=== PATIENT | male | born 1935 | race Caucasian/White ===

== ENCOUNTER 2018-02-11 16:49 | Outpatient (CLI) | payer MEDICARE, BC ==
[~2018-02-11 16:49] MED LIST: ASPI-611 PO; FLEC100T2 PO; METO-539 PO
[2018-02-11 17:17] LABS: BASOPHILS % (AUTO) 0.2 % (0-1); EOSINOPHILS # (AUTO) 0.4 X10'3 (0-0.9); EOSINOPHILS % (AUTO) 4.8 % (0-6); HEMATOCRIT 42.8 % (42.0-52.0); HEMOGLOBIN 14.7 g/dl (14.0-17.9); LYMPHOCYTES # (AUTO) 1.3 X10'3 (1.1-4.8); LYMPHOCYTES % (AUTO) 17.4 % (21-51); MEAN CORPUSCULAR HEMOGLOBIN 31.8 PG (27.0-31.0); MEAN CORPUSCULAR HGB CONC 34.3 % (33.0-36.5); MEAN CORPUSCULAR VOLUME 92.6 FL (78-98); MEAN PLATELET VOLUME 7.4 FL (7.4-10.4); MONOCYTES % (AUTO) 13.1 % (2-12); NEUTROPHILS # (AUTO) 4.9 X10'3 (1.8-7.7); NEUTROPHILS % (AUTO) 64.5 % (42-75); PLATELET COUNT 238 X10'3 (140-440); RED BLOOD COUNT 4.63 X10'6 (4.70-6.10); RED CELL DISTRIBUTION WIDTH 13.9 % (11.5-14.5); WHITE BLOOD COUNT 7.7 X10'3 (4.5-11.0)
[2018-02-11 17:28] LABS: ALBUMIN 3.4 G/DL (3.4-5.0); ANION GAP 7 (8-16); BLOOD UREA NITROGEN 15 MG/DL (7-18); BUN/CREATININE RATIO 15.2 (5.4-32.0); CALCIUM 8.6 MG/DL (8.5-10.1); CHLORIDE 104 MMOL/L (99-107); CREATININE 0.99 MG/DL (0.60-1.10); GLUCOSE 118 MG/DL (70-104); POTASSIUM 4.6 MMOL/L (3.5-5.1); SODIUM 140 MMOL/L (135-145); TOTAL CARBON DIOXIDE 29.5 MMOL/L (24-32); eGFR 72 ML/MIN
[2018-02-11 17:29] LABS: INR 1.1 INR; PARTIAL THROMBOPLASTIN TIME 31 SECONDS (22-32); PROTHROMBIN TIME 11.2 SECONDS (9.0-12.0)
== END 2018-02-11 23:59 | disposition home or self-care (01) ==
LOC: LAB 16:49
PROVIDERS: ATTEND Internal Medicine Interventional Cardiology
DX: Z01.810 Encounter for preprocedural cardiovascular examination (principal); I35.0 Nonrheumatic aortic (valve) stenosis; I48.0 Paroxysmal atrial fibrillation; I49.8 Other specified cardiac arrhythmias; D45 Polycythemia vera; M79.605 Pain in left leg; I70.213 Atherosclerosis of native arteries of extremities with intermittent claudication, bilateral legs; I65.23 Occlusion and stenosis of bilateral carotid arteries; R03.0 Elevated blood-pressure reading, without diagnosis of hypertension; I10 Essential (primary) hypertension; Z95.2 Presence of prosthetic heart valve; Z87.891 Personal history of nicotine dependence
CPT/HCPCS: 36415; 80048; 85025; 85610; 85730

== ENCOUNTER 2018-02-19 08:20 | Inpatient (IN) | payer MEDICARE, BC ==
[2018-02-19] VITALS (23 sets, daily range): BP systolic 59–202; BP diastolic 37–96
[~2018-02-19] VITALS: Ht 175.3 cm; Wt 71.2 kg
[~2018-02-19 08:20] MED LIST changes: -ASPI-611 PO; +Cefazolin 2GM/50ML dext iso,osmotic IVPB IV ONE; +LISI10TA4 PO; -METO-539 PO; +RIVA20TA PO; +famotidine 20mg tablet PO ONE; +ringers solution, lacted 1,000 ML IV SCH
[2018-02-19 09:23] LABS: BASOPHILS % (AUTO) 0.1 % (0-1); EOSINOPHILS # (AUTO) 0.2 X10'3 (0-0.9); EOSINOPHILS % (AUTO) 2.4 % (0-6); LYMPHOCYTES % (AUTO) 11.2 % (21-51); MEAN CORPUSCULAR HEMOGLOBIN 31.7 PG (27.0-31.0); MEAN CORPUSCULAR HGB CONC 34.3 % (33.0-36.5); MEAN CORPUSCULAR VOLUME 92.6 FL (78-98); MEAN PLATELET VOLUME 7.3 FL (7.4-10.4); MONOCYTES # (AUTO) 0.9 X10'3 (0-0.9); NEUTROPHILS # (AUTO) 7.1 X10'3 (1.8-7.7); NEUTROPHILS % (AUTO) 76.3 % (42-75); PRE OP HEMATOCRIT 42.2 % (42.0-52.0); PRE OP HEMOGLOBIN 14.5 g/dL (14.0-17.9); PRE OP PLATELET COUNT 256 X10'3 (140-440); RED BLOOD COUNT 4.56 X10'6 (4.70-6.10); RED CELL DISTRIBUTION WIDTH 13.4 % (11.5-14.5)
[2018-02-19 09:41] LABS: ALANINE AMINOTRANSFERASE 23 U/L (12-78); ALBUMIN 3.3 G/DL (3.4-5.0); ALBUMIN/GLOBULIN RATIO 0.9 (1.1-1.5); ALKALINE PHOSPHATASE 104 IU/L (46-116); ANION GAP 6 (8-16); ASPARTATE AMINO TRANSFERASE 16 U/L (10-37); BILIRUBIN,TOTAL 0.9 MG/DL (0.1-1.0); BLOOD UREA NITROGEN 11 MG/DL (7-18); BUN/CREATININE RATIO 10.8 (5.4-32.0); CALCIUM 8.7 MG/DL (8.5-10.1); CHLORIDE 102 MMOL/L (99-107); CREATININE 1.02 MG/DL (0.60-1.10); GLUCOSE 101 MG/DL (70-104); POTASSIUM 4.6 MMOL/L (3.5-5.1); SODIUM 136 MMOL/L (135-145); TOTAL CARBON DIOXIDE 28.5 MMOL/L (24-32); eGFR 70 ML/MIN
[2018-02-19] MEDS ORDERED: morphine 2 MG/ML inj. syringe IV ONE (10:20)
[2018-02-19] MEDS ORDERED: morphine 4 MG/ML inj SYRINge IV ONE (10:30)
[2018-02-19] MEDS ORDERED: magnesium hydroxide 30ml (MOM) UD suspension PO PRN (11:20)
[2018-02-19] MEDS ORDERED: acetaminophen 325mg tablet PO PRN (11:20)
[2018-02-19] MEDS ORDERED: normal saline 1000ml 1,000 ML IV SCH (11:20)
[2018-02-19] MEDS ORDERED: magnesium 1gm/100ml D5W IVPB 100 ML IV PRN (11:20)
[2018-02-19] MEDS ORDERED: potassium Cl 40MEQ/NS 500ml 500 ML IV PRN ×2 (11:20)
[2018-02-19] MEDS ORDERED: ondansetron/PF 4mg/2ml inj IV PRN ×2 (11:20→16:55)
[2018-02-19] MEDS ORDERED: mag hydrox/Alum hydrox/simeth 30ml oral suspension PO PRN (11:20)
[2018-02-19] MEDS ORDERED: magnesium 4gm in 100ml NS 100 ML IV PRN (11:20)
[2018-02-19] MEDS ORDERED: potassium Cl 20 mEq SR tablet PO PRN ×2 (11:20)
[2018-02-19] MEDS ORDERED: magnesium Cl slow-release 64mg tablet PO PRN (11:20)
[2018-02-19] MEDS ORDERED: hydrALAZINE 20mg/ml inj. IV PRN (11:25)
[2018-02-19] MEDS ORDERED: heparin 10,000 units/1 ML INJ ONE ×2 (12:28→20:25)
[2018-02-19] MEDS ORDERED: ceFAZolin 1000mg inj ONE ×3 (12:28→21:23)
[2018-02-19] MEDS ORDERED: LIDOcaine 1%/PF 5ML 10 MG/ML VIAL ONE ×3 (12:47)
[2018-02-19] MEDS ORDERED: tetracaine 1% (10mg/ml) pres. free inj. ONE ×2 (13:03→14:32)
[2018-02-19] MEDS ORDERED: BUPIVAcaine/PF 7.5mg/ml (0.75%) 10ml vial ONE (13:03)
[2018-02-19] MEDS ORDERED: MIDAZolam 1mg/ml 10ml vial ONE (13:06)
[2018-02-19] MEDS ORDERED: fentaNYL/PF 50MCG/1 ML 2ML syringe ONE ×2 (13:07→20:55)
[2018-02-19] MEDS ORDERED: ringers solution, lacted 1,000 ML IV SCH (16:51)
[2018-02-19] MEDS ORDERED: morphine 4 MG/ML inj SYRINge IV PRN (16:55)
[2018-02-19] MEDS ORDERED: proCHLORperazine 10 MG/2 ml inj IV PRN (16:55)
[2018-02-19] MEDS ORDERED: meperidine/PF 25mg/ml syringe IV PRN ×3 (16:55)
[2018-02-19] MEDS ORDERED: MESSAGE TO PHARMACY PO ONE (17:35)
[2018-02-19] MEDS ORDERED: albumin (Human) 5% 250 ML IV solution IV STA (20:04)
[2018-02-19] MEDS ORDERED: albumin (Human) 5% 250ml 500 ML IV ONE (20:06)
[2018-02-19 20:20] LABS: ISTAT ANION GAP 13 (8-12); ISTAT BUN 8 mg/dL (6-19); ISTAT CL 104 mmol/L (99-107); ISTAT CREATININE 0.7 mg/dL (0.8-1.3); ISTAT GLUCOSE 96 mg/dL (70-104); ISTAT HGB 9.5 g/dl (14.0-18.0); ISTAT Hct 28 %PCV (42-52); ISTAT IONIZED CALCIUM 1.21 mmol/L (1.03-1.32); ISTAT K 3.9 mmol/L (3.5-5.1); ISTAT NA 138 mmol/L (135-145); ISTAT TOTAL CO2 21 mmol/L (24-32); ISTAT eGFR > 90 ML/MIN; POC BUN/CREATININE RATIO 11.4 (5.4-32.0)
[2018-02-19] MEDS ORDERED: sevoflurane 250ml liquid IH ONE (20:20)
[2018-02-19] MEDS ORDERED: etomidate 2mg/ml inj. ONE (20:53)
[2018-02-19] MEDS ORDERED: midazolam 2 mg/2 ml injection ONE (20:55)
[2018-02-19] MEDS: morphine 4 MG/ML inj SYRINge IV PRN ×3 (22:36→23:40)
[2018-02-19] MEDS: ringers solution, lacted 1,000 ML IV SCH (22:36)
[2018-02-19] MEDS: flecainide 50mg tablet PO SCH (22:37)
[2018-02-19] MEDS: metoprolol tartrate 12.5mg (1/2 tablet) PO SCH (22:37)
[2018-02-20] VITALS (24 sets, daily range): BP systolic 105–172; BP diastolic 54–76
[2018-02-20 00:04] LABS: HEMOGLOBIN A1C 5.6 % (4.5-6.2)
[2018-02-20] MEDS: morphine 4 MG/ML inj SYRINge IV PRN ×2 (02:48→05:21)
[2018-02-20 03:33] LABS: BASOPHILS % (AUTO) 0.2 % (0-1); EOSINOPHILS # (AUTO) 0.1 X10'3 (0-0.9); EOSINOPHILS % (AUTO) 1.4 % (0-6); HEMATOCRIT 34.7 % (42.0-52.0); HEMOGLOBIN 11.8 g/dl (14.0-17.9); LYMPHOCYTES # (AUTO) 0.8 X10'3 (1.1-4.8); LYMPHOCYTES % (AUTO) 10.1 % (21-51); MEAN CORPUSCULAR HGB CONC 33.9 % (33.0-36.5); MEAN CORPUSCULAR VOLUME 88.5 FL (78-98); MEAN PLATELET VOLUME 7.4 FL (7.4-10.4); MONOCYTES # (AUTO) 1.1 X10'3 (0-0.9); MONOCYTES % (AUTO) 13.6 % (2-12); NEUTROPHILS # (AUTO) 6.2 X10'3 (1.8-7.7); NEUTROPHILS % (AUTO) 74.7 % (42-75); PLATELET COUNT 186 X10'3 (140-440); RED BLOOD COUNT 3.92 X10'6 (4.70-6.10); RED CELL DISTRIBUTION WIDTH 15.3 % (11.5-14.5); WHITE BLOOD COUNT 8.3 X10'3 (4.5-11.0)
[2018-02-20 03:50] LABS: ALANINE AMINOTRANSFERASE 16 U/L (12-78); ALBUMIN 2.8 G/DL (3.4-5.0); ALKALINE PHOSPHATASE 68 IU/L (46-116); ANION GAP 7 (8-16); ASPARTATE AMINO TRANSFERASE 16 U/L (10-37); BILIRUBIN,TOTAL 1.3 MG/DL (0.1-1.0); BLOOD UREA NITROGEN 9 MG/DL (7-18); BUN/CREATININE RATIO 12.3 (5.4-32.0); CALCIUM 7.6 MG/DL (8.5-10.1); CHLORIDE 107 MMOL/L (99-107); CREATININE 0.73 MG/DL (0.60-1.10); GLUCOSE 108 MG/DL (70-104); MAGNESIUM 1.8 MG/DL (1.5-2.4); SODIUM 138 MMOL/L (135-145); TOTAL CARBON DIOXIDE 23.9 MMOL/L (24-32); TOTAL PROTEIN 5.5 G/DL (6.4-8.2); eGFR > 90 ML/MIN
[2018-02-20] MEDS: ringers solution, lacted 1,000 ML IV SCH ×2 (05:30→14:56)
[2018-02-20] MEDS ORDERED: enoxaparin 40mg/0.4ml syringe SQ SCH (08:00)
[2018-02-20] MEDS: K and/or MAG REPLACEMENT MC SCH (08:00)
[2018-02-20] MEDS: lisinopril 10 MG tablet PO SCH (09:08)
[2018-02-20] MEDS: metoprolol tartrate 12.5mg (1/2 tablet) PO SCH ×2 (09:08→20:31)
[2018-02-20] MEDS: flecainide 50mg tablet PO SCH ×2 (11:19→20:31)
[2018-02-20 12:12] LABS: HEMATOCRIT 33.9 % (42.0-52.0); HEMOGLOBIN 11.6 g/dl (14.0-17.9); MEAN CORPUSCULAR HEMOGLOBIN 29.9 PG (27.0-31.0); MEAN CORPUSCULAR HGB CONC 34.2 % (33.0-36.5); MEAN CORPUSCULAR VOLUME 87.5 FL (78-98); MEAN PLATELET VOLUME 7.6 FL (7.4-10.4); PLATELET COUNT 182 X10'3 (140-440); RED BLOOD COUNT 3.87 X10'6 (4.70-6.10); RED CELL DISTRIBUTION WIDTH 15.7 % (11.5-14.5); WHITE BLOOD COUNT 9.9 X10'3 (4.5-11.0)
[2018-02-20] MEDS ORDERED: rivaroxaban 20mg tablet PO SCH (15:35)
[2018-02-20] MEDS ORDERED: enoxaparin 40mg/0.4ml syringe SUBCUT ONE (20:00)
[2018-02-20] MEDS: HYDROcodone/acetaminophen 5mg/325mg tablet PO PRN (20:31)
[2018-02-20 22:21] LABS: MEAN CORPUSCULAR HEMOGLOBIN 30.3 PG (27.0-31.0); MEAN CORPUSCULAR HGB CONC 34.3 % (33.0-36.5); MEAN CORPUSCULAR VOLUME 88.3 FL (78-98); MEAN PLATELET VOLUME 7.5 FL (7.4-10.4); PLATELET COUNT 168 X10'3 (140-440); RED BLOOD COUNT 3.29 X10'6 (4.70-6.10); RED CELL DISTRIBUTION WIDTH 15.4 % (11.5-14.5); WHITE BLOOD COUNT 10.3 X10'3 (4.5-11.0)
[2018-02-21] VITALS (18 sets, daily range): BP systolic 104–161; BP diastolic 49–93
[2018-02-21] MEDS: ringers solution, lacted 1,000 ML IV SCH (01:05)
[2018-02-21 05:14] LABS: BASOPHILS % (AUTO) 0 % (0-1); EOSINOPHILS # (AUTO) 0.3 X10'3 (0-0.9); HEMATOCRIT 33.6 % (42.0-52.0); HEMOGLOBIN 11.3 g/dl (14.0-17.9); LYMPHOCYTES # (AUTO) 0.9 X10'3 (1.1-4.8); LYMPHOCYTES % (AUTO) 9.4 % (21-51); MEAN CORPUSCULAR HEMOGLOBIN 29.9 PG (27.0-31.0); MEAN CORPUSCULAR HGB CONC 33.8 % (33.0-36.5); MEAN CORPUSCULAR VOLUME 88.4 FL (78-98); MEAN PLATELET VOLUME 7.8 FL (7.4-10.4); MONOCYTES # (AUTO) 1.3 X10'3 (0-0.9); MONOCYTES % (AUTO) 13.7 % (2-12); NEUTROPHILS # (AUTO) 7.1 X10'3 (1.8-7.7); NEUTROPHILS % (AUTO) 73.9 % (42-75); PLATELET COUNT 196 X10'3 (140-440); WHITE BLOOD COUNT 9.7 X10'3 (4.5-11.0)
[2018-02-21 05:30] LABS: ALANINE AMINOTRANSFERASE 14 U/L (12-78); ALBUMIN 2.5 G/DL (3.4-5.0); ALBUMIN/GLOBULIN RATIO 0.9 (1.1-1.5); ALKALINE PHOSPHATASE 66 IU/L (46-116); ANION GAP 8 (8-16); ASPARTATE AMINO TRANSFERASE 18 U/L (10-37); BILIRUBIN,TOTAL 1.1 MG/DL (0.1-1.0); BLOOD UREA NITROGEN 7 MG/DL (7-18); BUN/CREATININE RATIO 8.3 (5.4-32.0); CHLORIDE 103 MMOL/L (99-107); CREATININE 0.84 MG/DL (0.60-1.10); GLUCOSE 93 MG/DL (70-104); MAGNESIUM 1.8 MG/DL (1.5-2.4); POTASSIUM 3.9 MMOL/L (3.5-5.1); SODIUM 137 MMOL/L (135-145); TOTAL CARBON DIOXIDE 26.5 MMOL/L (24-32); TOTAL PROTEIN 5.3 G/DL (6.4-8.2); eGFR 87 ML/MIN
[2018-02-21] MEDS: K and/or MAG REPLACEMENT MC SCH (08:00)
[2018-02-21] MEDS: lisinopril 10 MG tablet PO SCH (08:05)
[2018-02-21] MEDS: metoprolol tartrate 12.5mg (1/2 tablet) PO SCH ×2 (08:05→19:40)
[2018-02-21] MEDS: flecainide 50mg tablet PO SCH ×2 (08:05→19:40)
[2018-02-21] MEDS: rivaroxaban 20mg tablet PO SCH (08:05)
[2018-02-21 08:46] LABS: HEMATOCRIT 35.5 % (42.0-52.0); MEAN CORPUSCULAR HEMOGLOBIN 30.2 PG (27.0-31.0); MEAN CORPUSCULAR HGB CONC 33.8 % (33.0-36.5); MEAN CORPUSCULAR VOLUME 89.5 FL (78-98); MEAN PLATELET VOLUME 7.5 FL (7.4-10.4); PLATELET COUNT 203 X10'3 (140-440); RED BLOOD COUNT 3.96 X10'6 (4.70-6.10); RED CELL DISTRIBUTION WIDTH 15.5 % (11.5-14.5); WHITE BLOOD COUNT 9.1 X10'3 (4.5-11.0)
[2018-02-21] MEDS: HYDROcodone/acetaminophen 5mg/325mg tablet PO PRN ×2 (11:59→19:40)
[2018-02-22] VITALS: BP 144/66
[2018-02-22 05:43] LABS: BASOPHILS % (AUTO) 0.1 % (0-1); EOSINOPHILS # (AUTO) 0.2 X10'3 (0-0.9); EOSINOPHILS % (AUTO) 1.7 % (0-6); HEMATOCRIT 34.2 % (42.0-52.0); HEMOGLOBIN 11.5 g/dl (14.0-17.9); LYMPHOCYTES % (AUTO) 10.1 % (21-51); MEAN CORPUSCULAR HEMOGLOBIN 29.9 PG (27.0-31.0); MEAN CORPUSCULAR HGB CONC 33.7 % (33.0-36.5); MEAN CORPUSCULAR VOLUME 88.6 FL (78-98); MEAN PLATELET VOLUME 7.4 FL (7.4-10.4); MONOCYTES # (AUTO) 1.3 X10'3 (0-0.9); MONOCYTES % (AUTO) 12.8 % (2-12); NEUTROPHILS # (AUTO) 7.8 X10'3 (1.8-7.7); NEUTROPHILS % (AUTO) 75.3 % (42-75); PLATELET COUNT 224 X10'3 (140-440); RED BLOOD COUNT 3.86 X10'6 (4.70-6.10); WHITE BLOOD COUNT 10.4 X10'3 (4.5-11.0)
[2018-02-22 06:06] LABS: ALANINE AMINOTRANSFERASE 15 U/L (12-78); ALBUMIN 2.4 G/DL (3.4-5.0); ALBUMIN/GLOBULIN RATIO 0.8 (1.1-1.5); ALKALINE PHOSPHATASE 66 IU/L (46-116); ANION GAP 8 (8-16); ASPARTATE AMINO TRANSFERASE 16 U/L (10-37); BILIRUBIN,TOTAL 0.7 MG/DL (0.1-1.0); BLOOD UREA NITROGEN 8 MG/DL (7-18); BUN/CREATININE RATIO 8.5 (5.4-32.0); CALCIUM 8.3 MG/DL (8.5-10.1); CHLORIDE 104 MMOL/L (99-107); CREATININE 0.94 MG/DL (0.60-1.10); GLUCOSE 100 MG/DL (70-104); POTASSIUM 3.7 MMOL/L (3.5-5.1); SODIUM 137 MMOL/L (135-145); TOTAL CARBON DIOXIDE 25.5 MMOL/L (24-32); TOTAL PROTEIN 5.6 G/DL (6.4-8.2); eGFR 76 ML/MIN
[2018-02-22 07:00] VITALS: BP 149/73
[2018-02-22] MEDS: flecainide 50mg tablet PO SCH ×2 (07:46→19:19)
[2018-02-22] MEDS: lisinopril 10 MG tablet PO SCH (07:46)
[2018-02-22] MEDS: metoprolol tartrate 12.5mg (1/2 tablet) PO SCH ×2 (07:46→19:19)
[2018-02-22] MEDS: rivaroxaban 20mg tablet PO SCH (07:46)
[2018-02-22] MEDS: K and/or MAG REPLACEMENT MC SCH (07:49)
[2018-02-22 11:00] VITALS: BP 119/59
[2018-02-22] MEDS: HYDROcodone/acetaminophen 5mg/325mg tablet PO PRN (16:09)
[2018-02-22 19:00] VITALS: BP 143/67
[2018-02-23] VITALS: BP 108/59
[2018-02-23 05:47] LABS: BASOPHILS % (AUTO) 0.3 % (0-1); EOSINOPHILS # (AUTO) 0.3 X10'3 (0-0.9); EOSINOPHILS % (AUTO) 3.1 % (0-6); HEMATOCRIT 32.4 % (42.0-52.0); HEMOGLOBIN 10.8 g/dl (14.0-17.9); LYMPHOCYTES # (AUTO) 1.2 X10'3 (1.1-4.8); LYMPHOCYTES % (AUTO) 13.4 % (21-51); MEAN CORPUSCULAR HEMOGLOBIN 30.1 PG (27.0-31.0); MEAN CORPUSCULAR HGB CONC 33.4 % (33.0-36.5); MEAN CORPUSCULAR VOLUME 89.9 FL (78-98); MEAN PLATELET VOLUME 7.4 FL (7.4-10.4); MONOCYTES % (AUTO) 11.2 % (2-12); NEUTROPHILS # (AUTO) 6.2 X10'3 (1.8-7.7); PLATELET COUNT 242 X10'3 (140-440); RED CELL DISTRIBUTION WIDTH 14.9 % (11.5-14.5); WHITE BLOOD COUNT 8.6 X10'3 (4.5-11.0)
[2018-02-23 06:05] LABS: ALANINE AMINOTRANSFERASE 19 U/L (12-78); ALBUMIN 2.3 G/DL (3.4-5.0); ALBUMIN/GLOBULIN RATIO 0.7 (1.1-1.5); ALKALINE PHOSPHATASE 60 IU/L (46-116); ANION GAP 7 (8-16); ASPARTATE AMINO TRANSFERASE 16 U/L (10-37); BILIRUBIN,TOTAL 0.8 MG/DL (0.1-1.0); BLOOD UREA NITROGEN 8 MG/DL (7-18); BUN/CREATININE RATIO 9.8 (5.4-32.0); CALCIUM 8.1 MG/DL (8.5-10.1); CHLORIDE 105 MMOL/L (99-107); CREATININE 0.82 MG/DL (0.60-1.10); GLUCOSE 104 MG/DL (70-104); MAGNESIUM 2.2 MG/DL (1.5-2.4); POTASSIUM 3.8 MMOL/L (3.5-5.1); SODIUM 138 MMOL/L (135-145); TOTAL CARBON DIOXIDE 25.6 MMOL/L (24-32); TOTAL PROTEIN 5.6 G/DL (6.4-8.2); eGFR 90 ML/MIN
[2018-02-23 06:56] VITALS: BP 139/74
[2018-02-23] MEDS: K and/or MAG REPLACEMENT MC SCH (08:00)
[2018-02-23] MEDS: flecainide 50mg tablet PO SCH ×2 (08:35→19:41)
[2018-02-23] MEDS: rivaroxaban 20mg tablet PO SCH (08:35)
[2018-02-23] MEDS: lisinopril 10 MG tablet PO SCH (08:35)
[2018-02-23] MEDS: metoprolol tartrate 12.5mg (1/2 tablet) PO SCH ×2 (08:36→19:41)
[2018-02-23 11:40] VITALS: BP 154/81
[2018-02-23] MEDS: HYDROcodone/acetaminophen 5mg/325mg tablet PO PRN ×2 (15:16→21:25)
[2018-02-23 19:00] VITALS: BP 154/74
[2018-02-24] VITALS: BP 114/65
[2018-02-24 06:27] LABS: ALANINE AMINOTRANSFERASE 24 U/L (12-78); ALBUMIN 2.4 G/DL (3.4-5.0); ALBUMIN/GLOBULIN RATIO 0.8 (1.1-1.5); ALKALINE PHOSPHATASE 64 IU/L (46-116); ANION GAP 7 (8-16); ASPARTATE AMINO TRANSFERASE 20 U/L (10-37); BILIRUBIN,TOTAL 1.1 MG/DL (0.1-1.0); BLOOD UREA NITROGEN 10 MG/DL (7-18); CALCIUM 8.3 MG/DL (8.5-10.1); CHLORIDE 104 MMOL/L (99-107); CREATININE 0.83 MG/DL (0.60-1.10); GLUCOSE 103 MG/DL (70-104); MAGNESIUM 2.1 MG/DL (1.5-2.4); POTASSIUM 4.2 MMOL/L (3.5-5.1); SODIUM 137 MMOL/L (135-145); TOTAL CARBON DIOXIDE 25.9 MMOL/L (24-32); TOTAL PROTEIN 5.6 G/DL (6.4-8.2); eGFR 88 ML/MIN
[2018-02-24 07:00] VITALS: BP 121/58
[2018-02-24] MEDS: flecainide 50mg tablet PO SCH ×2 (07:52→20:20)
[2018-02-24] MEDS: rivaroxaban 20mg tablet PO SCH (07:52)
[2018-02-24] MEDS: lisinopril 10 MG tablet PO SCH (07:52)
[2018-02-24] MEDS: metoprolol tartrate 12.5mg (1/2 tablet) PO SCH ×2 (07:52→20:20)
[2018-02-24] MEDS: HYDROcodone/acetaminophen 5mg/325mg tablet PO PRN (07:53)
[2018-02-24] MEDS: K and/or MAG REPLACEMENT MC SCH (08:00)
[2018-02-24 08:30] LABS: BASOPHILS % (AUTO) 0.2 % (0-1); EOSINOPHILS # (AUTO) 0.2 X10'3 (0-0.9); EOSINOPHILS % (AUTO) 1.7 % (0-6); HEMATOCRIT 33.3 % (42.0-52.0); HEMOGLOBIN 11.3 g/dl (14.0-17.9); LYMPHOCYTES # (AUTO) 0.7 X10'3 (1.1-4.8); LYMPHOCYTES % (AUTO) 6.3 % (21-51); MEAN CORPUSCULAR HEMOGLOBIN 30.3 PG (27.0-31.0); MEAN CORPUSCULAR HGB CONC 33.9 % (33.0-36.5); MEAN CORPUSCULAR VOLUME 89.5 FL (78-98); MONOCYTES # (AUTO) 1.1 X10'3 (0-0.9); MONOCYTES % (AUTO) 10.1 % (2-12); NEUTROPHILS # (AUTO) 9.2 X10'3 (1.8-7.7); NEUTROPHILS % (AUTO) 81.7 % (42-75); PLATELET COUNT 257 X10'3 (140-440); RED BLOOD COUNT 3.72 X10'6 (4.70-6.10); RED CELL DISTRIBUTION WIDTH 15.2 % (11.5-14.5); WHITE BLOOD COUNT 11.2 X10'3 (4.5-11.0)
[2018-02-24 11:00] VITALS: BP 92/47
[2018-02-24 19:30] VITALS: BP 137/67
[2018-02-25] VITALS: BP 122/68
[2018-02-25 07:00] VITALS: BP 131/70
[2018-02-25] MEDS: metoprolol tartrate 12.5mg (1/2 tablet) PO SCH (07:47)
[2018-02-25] MEDS: rivaroxaban 20mg tablet PO SCH (07:48)
[2018-02-25] MEDS: lisinopril 10 MG tablet PO SCH (07:48)
[2018-02-25] MEDS: flecainide 50mg tablet PO SCH (07:48)
[2018-02-25] MEDS: K and/or MAG REPLACEMENT MC SCH (08:00)
[2018-02-25 11:00] VITALS: BP 115/60
[2018-03-06] MEDS ORDERED: SULF1TAB49 PO (20:35)
== END 2018-02-25 16:55 | DRG 253 ==
LOC: PAS IN 08:20 → EDSTATUS 12:00 → CICU 2S 22:00 → SUR 3N 02-21 17:10
PROVIDERS: ADMIT Surgery; ATTEND Internal Medicine Critical Care Medicine
PROC: 06BY0ZZ Excision of Lower Vein, Open Approach (ICD-10-PCS; 2018-02-19)
PROC: 30233N1 Transfusion of Nonautologous Red Blood Cells into Peripheral Vein, Percutaneous Approach (ICD-10-PCS; 2018-02-19)
PROC: 04CM0ZZ Extirpation of Matter from Right Popliteal Artery, Open Approach (ICD-10-PCS; 2018-02-19)
PROC: 041K09M Bypass Right Femoral Artery to Peroneal Artery with Autologous Venous Tissue, Open Approach (ICD-10-PCS; principal; 2018-02-19 14:15)
DX: I70.211 Atherosclerosis of native arteries of extremities with intermittent claudication, right leg (principal); L97.819 Non-pressure chronic ulcer of other part of right lower leg with unspecified severity; D75.1 Secondary polycythemia; I48.0 Paroxysmal atrial fibrillation; J44.9 Chronic obstructive pulmonary disease, unspecified; E86.1 Hypovolemia; I95.89 Other hypotension; I35.0 Nonrheumatic aortic (valve) stenosis; Z60.2 Problems related to living alone; I10 Essential (primary) hypertension; Z95.2 Presence of prosthetic heart valve; Z79.899 Other long term (current) drug therapy; Z87.891 Personal history of nicotine dependence
CPT/HCPCS: 36415; 71045; 80047; 80053; 82948; 83036; 83735; 85025; 85027; 86885; 86900; 86901; 86920; 87070; 97110; 97116; 97161; 97530; A6212; A6213; A6253; A6255; A6258; A6446; A6449; A7000; C1758; J0360; J0690; J1644; J1650; J2001; J2175; J2250; J2270; J3010; J3490; J7030; J7120; P9016; P9045